=== PATIENT | male | born 1985 | race Caucasian/White ===

== ENCOUNTER 2018-02-27 02:42 | Emergency (ER) | payer BC ==
[2018-02-27 02:51] VITALS: RESP 16
[2018-02-27] MEDS ORDERED: PANTOPRAZOLE 40 MG/10 ML VIAL IVP STA (02:57)
[2018-02-27] MEDS ORDERED: ONDANSETRON 4 MG/2 ML VIAL IVP STA (02:57)
[2018-02-27] MEDS ORDERED: SODIUM CHLORIDE 0.9% 1,000 ML IV STA (02:57)
[2018-02-27] MEDS ORDERED: MAG HYDROX/AL HYDROX/SIMETH 30 ML, HYOSCYAMINE ELIXIR 10 ML, CIMETIDINE HCL 300 MG PO STA ×3 (03:30)
--- NOTE | 2018-02-27 03:34 | ED ---
Abdominal Pain HPI - General Source: patient, RN notes reviewed Mode of arrival: ambulatory Limitations: no limitations <Shadi Lal - Last Filed: 02/27/18 03:32> <Willie Lzu - Last Filed: 02/27/18 04:42> - General Chief Complaint: Abdominal Pain Stated Complaint: abd pain,vomiting Time Seen by Provider: 02/27/18 02:57 - History of Present Illness Initial Comments: 33-year-old male presents emergency Department with chief complaint of ongoing abdominal pain, nausea vomiting. Patient states he typically vomits nightly and he has epigastric pain. Patient believes that he has ulcers and hiatal hernia. He states he's never been examined. He states that he just had insurance for some 8 years. Patient denies any fever, chills no prior abdominal surgeries. Patient states that he eats healthy does take Zantac 150 mg twice daily patient denies any relief with any other [id number] medications the past. Patient states a few days ago he had Blood in his emesis. Patient states that his symptoms are not resolving but the usually do so he decided to come emergency department. Patient has no dysuria no hematuria. (Shadi Lal) - Related Data Home Medications Medication Instructions Recorded Confirmed Ranitidine HCl [Zantac] 300 mg PO DAILY 08/01/16 08/01/16 Previous Rx's Medication Instructions Recorded Cephalexin [Keflex] 500 mg PO Q6HR #28 cap 08/01/16 Allergies Allergy/AdvReac Type Severity Reaction Status Date / Time No Known Allergies Allergy Verified 08/01/16 12:49 Review of Systems ROS Other: All systems not noted in ROS Statement are negative. <Shadi Lal - Last Filed: 02/27/18 03:32> ROS Other: All systems not noted in ROS Statement are negative. <Willie Luz - Last Filed: 02/27/18 04:42> ROS Statement: Those systems with pertinent positive or pertinent negative responses have been documented in the HPI. Past Medical History Past Medical History: Hypertension History of Any Multi-Drug Resistant Organisms: None Reported Past Surgical History: Ear Surgery Past Psychological History: No Psychological Hx Reported Smoking Status: Current every day smoker Past Alcohol Use History: Occasional Past Drug Use History: Marijuana <Shadi Lal - Last Filed: 02/27/18 03:32> General Exam Limitations: no limitations General appearance: alert, in no apparent distress Head exam: Present: atraumatic, normocephalic, normal inspection Eye exam: Present: normal appearance, PERRL, EOMI. Absent: scleral icterus, conjunctival injection, periorbital swelling ENT exam: Present: normal oropharynx, mucous membranes moist Neck exam: Present: normal inspection. Absent: tenderness, meningismus, lymphadenopathy Respiratory exam: Present: normal lung sounds bilaterally. Absent: respiratory distress, wheezes, rales, rhonchi, stridor Cardiovascular Exam: Present: regular rate, normal rhythm, normal heart sounds. Absent: systolic murmur, diastolic murmur, rubs, gallop, clicks GI/Abdominal exam: Present: soft, tenderness (On the moderate epigastric tenderness), normal bowel sounds. Absent: distended, guarding, rebound, rigid Back exam: Absent: CVA tenderness (R), CVA tenderness (L) <Shadi Lal - Last Filed: 02/27/18 03:32> Vital Signs 02/27/18 02:46 Temperature 97.0 F L Pulse Rate 64 Respiratory 16 Rate Blood Pressure 141/88 O2 Sat by Pulse 100 Oximetry Medical Decision Making - Lab Data Result diagrams: 02/27/18 03:50 02/27/18 03:50 <Willie Luz - Last Filed: 02/27/18 04:42> - Lab Data Lab Results 02/27/18 02/27/18 Range/Units 03:50 03:50 WBC 6.5 (3.8-10.6) k/uL RBC 5.61 (4.30-5.90) m/uL Hgb 17.5 (13.0-17.5) gm/dL Hct 53.1 H (39.0-53.0) % MCV 94.7 (80.0-100.0) fL MCH 31.2 (25.0-35.0) pg MCHC 32.9 (31.0-37.0) g/dL RDW 13.5 (11.5-15.5) % Plt Count 245 (150-450) k/uL Neutrophils % 55 % Lymphocytes % 30 % Monocytes % 10 % Eosinophils % 2 % Basophils % 1 % Neutrophils # 3.6 (1.3-7.7) k/uL Lymphocytes # 1.9 (1.0-4.8) k/uL Monocytes # 0.6 (0-1.0) k/uL Eosinophils # 0.1 (0-0.7) k/uL Basophils # 0.0 (0-0.2) k/uL Sodium 143 (137-145) mmol/L Potassium 4.3 (3.5-5.1) mmol/L Chloride 101 (98-107) mmol/L Carbon Dioxide 28 (22-30) mmol/L Anion Gap 14 mmol/L BUN 13 (9-20) mg/dL Creatinine 1.10 (0.66-1.25) mg/dL Est GFR (CKD-EPI)AfAm >90 (>60 ml/min/1.73 sqM) Est GFR (CKD-EPI)NonAf 89 (>60 ml/min/1.73 sqM) Glucose 89 (74-99) mg/dL Calcium 9.9 (8.4-10.2) mg/dL Total Bilirubin 0.9 (0.2-1.3) mg/dL AST 141 H (17-59) U/L ALT 147 H (21-72) U/L Alkaline Phosphatase 47 (38-126) U/L Total Protein 7.0 (6.3-8.2) g/dL Albumin 4.4 (3.5-5.0) g/dL Amylase 56 (30-110) U/L Lipase 79 (23-300) U/L Disposition <Shadi Lal - Last Filed: 02/27/18 03:32> Is patient prescribed a controlled substance at d/c from ED?: No Time of Disposition: 04:42 <Willie Luz - Last Filed: 02/27/18 04:42> Clinical Impression: Abdominal pain Disposition: HOME SELF-CARE Instructions: Abdominal Pain (ED) Referrals: Cee Giraldo MD [Primary Care Provider] - 1-2 days
[2018-02-27 04:09] LABS: Basophils % (A) 1 %; Eosinophils # (A) 0.1 k/uL (0-0.7); Eosinophils % (A) 2 %; HCT 53.1 % (39.0-53.0); HGB 17.5 gm/dL (13.0-17.5); Lymphocytes # (A) 1.9 k/uL (1.0-4.8); Lymphocytes % (A) 30 %; MCH 31.2 pg (25.0-35.0); MCHC 32.9 g/dL (31.0-37.0); MCV 94.7 fL (80.0-100.0); Mean Platelet Volume 7.3; Monocytes # (A) 0.6 k/uL (0-1.0); Monocytes % (A) 10 %; Neutrophils # (A) 3.6 k/uL (1.3-7.7); Neutrophils % (A) 55 %; Platelet Count 245 k/uL (150-450); RBC 5.61 m/uL (4.30-5.90); RDW 13.5 % (11.5-15.5); WBC 6.5 k/uL (3.8-10.6)
[2018-02-27 04:36] LABS: ALT 147 U/L (21-72); AST 141 U/L (17-59); Albumin 4.4 g/dL (3.5-5.0); Alkaline Phosphatase 47 U/L (38-126); Amylase 56 U/L (30-110); Anion Gap 14 mmol/L; Blood Urea Nitrogen 13 mg/dL (9-20); Calcium 9.9 mg/dL (8.4-10.2); Carbon Dioxide 28 mmol/L (22-30); Chloride 101 mmol/L (98-107); Glucose 89 mg/dL (74-99); Lipase 79 U/L (23-300); Potassium 4.3 mmol/L (3.5-5.1); Sodium 143 mmol/L (137-145); Total Bilirubin 0.9 mg/dL (0.2-1.3)
[2018-02-27] MEDS ORDERED: ONDANSETRON 4 MG ODT STARTER PACK 2 TAB BTL PO STA (04:42)
[2018-02-27 04:57] VITALS: BP 143/80; PULSE 69; TEMP 97.3
[2018-02-27 20:46] LABS: Hepatitis A AB IgM Index 0.01; Hepatitis A Antibody IgM NEGATIVE
[2018-02-28 00:56] LABS: Hepatitis B Core IgM Non-Reactive (Non-Reactive)
== END 2018-02-27 04:57 | disposition home or self-care (01) ==
LOC: EC 02:42
DX: R10.13 Epigastric pain (principal); R11.2 Nausea with vomiting, unspecified; F17.200 Nicotine dependence, unspecified, uncomplicated; Z79.899 Other long term (current) drug therapy
CPT/HCPCS: 99284; 96374; 96375; 96361; 36415; 80053; 80074; 82150; 83690; 85025; J2405; S0119; C9113

== ENCOUNTER 2018-03-14 11:36 | Day surgery (SDC) | payer BC ==
[2018-03-10 08:50] VITALS: BMI 26.7
[~2018-03-14 11:36] MED LIST: LACTATED RINGERS 1,000 ML IV SCH
[2018-03-14 12:07] VITALS: TEMP 97.3
[2018-03-14] MEDS ORDERED: FAMOTIDINE 20 MG/2 ML VIAL IVP ONE (12:44)
[2018-03-14] MEDS ORDERED: PROPOFOL 10 MG/ML 20 ML VIAL IV ONE (12:47)
[2018-03-14] MEDS ORDERED: MIDAZOLAM 2 MG/2 ML VIAL ONE (12:47)
[2018-03-14] MEDS ORDERED: LIDOCAINE 1% INJ 10MG/ML (20 ML MDV) ONE (12:47)
--- NOTE | 2018-03-14 13:22 | P.PCN ---
Date of Procedure: 03/14/18 Procedure(s) Performed: Procedure: Esophagogastroduodenoscopy and biopsy. Preoperative diagnosis: Chronic reflux symptoms symptomatic despite therapy. Postoperative diagnosis: 1. Hiatal hernia with LA grade B esophagitis. 2. Mild duodenitis but no ulcers or active bleeding. 3. Multiple biopsies obtained from the duodenum, antrum and esophagus. Preparation and sedation: Was provided by anesthesia. Brief clinical history: The patient is a 33-year-old male with history of reflux for more than 8 years maintained on ranitidine. The patient continues to be symptomatic especially in the evening and has episodes of vomiting including vomiting of blood. This evaluation is to assess the degree of esophagitis and rule out complicated reflux disease or other pathology. Procedure: With the patient on his left lateral decubitus position and after informed consent and adequate sedation, I passed the Olympus-GIF 160 video upper endoscope through the cricopharyngeus down the esophagus. G-E junction was around 41-42 cm from the incisors and there was a small sliding hiatal hernia. The distal esophagus showed linear erosions terminating at the GE junction consistent with LA grade B reflux esophagitis but there were no strictures or Moreno's esophagus or any ulcers or bleeding. The endoscope was then passed into the stomach which was insufflated with air and inspected in detail including the retroflex view in the cardia. There was no obvious findings in the stomach. Pyloric channel did not show any ulcers. Duodenal bulb showed some mottling and erythema but no ulcers or erosions. Post bulbar area and descending duodenum was within normal limits. I obtained biopsies from the duodenum, antrum and esophagus then the endoscope was withdrawn. The patient tolerated the procedure well. Plan: The patient was reassured. He will continue antireflux diet and measures and acid suppressive therapy. Consideration can be given to increasing the dose of his H2 blockers or trying PPI to improve the healing of his esophagitis. He will follow up with you as planned and I will be happy to see him in the office in follow-up if he remains symptomatic.
[2018-03-14 13:24] VITALS: RESP 18
[2018-03-14 13:44] VITALS: BP 137/79; PULSE 69
== END 2018-03-14 14:02 | disposition home or self-care (01) ==
LOC: ORWHC2ENDO 11:36
DX: K29.50 Unspecified chronic gastritis without bleeding (principal); K21.0 Gastro-esophageal reflux disease with esophagitis; K29.80 Duodenitis without bleeding; K44.9 Diaphragmatic hernia without obstruction or gangrene; M19.90 Unspecified osteoarthritis, unspecified site; I10 Essential (primary) hypertension; Z72.0 Tobacco use; F39 Unspecified mood [affective] disorder; Z79.899 Other long term (current) drug therapy
CPT/HCPCS: 88305; 43239; J2250; J2001; J2704

== ENCOUNTER → 2019-03-30 | Day surgery (SDC) | payer BC ==
[2019-03-28 15:38] VITALS: BMI 23.8
--- NOTE | 2019-03-29 18:33 | P.GSHP ---
History of Present Illness H&P Date: 03/29/19 Chief Complaint: Biliary dyskinesia 34-year-old male last seen in the fall of 2018. Patient had complaints of epigastric abdominal pain and frequent episodes of nausea and vomiting. This is occurring on a daily basis. He was sent to the [facility] for GI evaluation. He underwent an extensive workup. Ultrasound was negative for gallstones. HIDA scan did show a diminished ejection fraction. 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 It was felt by GI that the patient was suffering from atypical biliary dyskinesia and cholecystectomy was requested. Patient and I discussed these options by phone. He requested that surgery be scheduled. Past Medical History Past Medical History: Chest Pain / Angina, GERD/Reflux, Hypertension, Osteoarthritis (OA), Skin Disorder Additional Past Medical History / Comment(s): Rare episodes of chest pain that only last 15-20 seconds, abdominal pain, eczema. Hard of hearing left ear. History of Any Multi-Drug Resistant Organisms: None Reported Past Surgical History: Ear Surgery Past Anesthesia/Blood Transfusion Reactions: No Reported Reaction Past Psychological History: No Psychological Hx Reported Smoking Status: Current every day smoker Past Alcohol Use History: Occasional Additional Past Alcohol Use History / Comment(s): Smokes 1 PPD, has smoked for 15 yrs. Past Drug Use History: Marijuana Additional Drug Use History / Comment(s): Uses Marijuana 3-4X daily. Aware no alcohol or Marijuna 24 hrs prior to procedure. - Past Family History Mother Family Medical History: No Reported History Medications and Allergies Home Medications Medication Instructions Recorded Confirmed Type Omeprazole [PriLOSEC] 40 mg PO DIRECTED PRN 03/28/19 03/28/19 History Allergies Allergy/AdvReac Type Severity Reaction Status Date / Time No Known Allergies Allergy Verified 03/28/19 15:39 Surgical - Exam Physical exam: General: Well-developed, well-nourished HEENT: Normocephalic, sclerae nonicteric Abdomen: Nontender, nondistended Extremities: No edema Neuro: Alert and oriented Assessment and Plan (1) Biliary dyskinesia Narrative/Plan: Surgical options reviewed with the patient. Surgical risks also discussed. We'll proceed with laparoscopic, possible open cholecystectomy tomorrow. Risks of bleeding, infection, bile leak, bile duct injury, retained common bile duct stone, trocar injury, conversion to an open procedure, hernia, persistent complaints of nausea and vomiting, persistent abdominal pain, anesthesia related complications were reviewed. The patient understands and wishes to proceed. Status: Acute Code(s): K82.8 - OTHER SPECIFIED DISEASES OF GALLBLADDER SNOMED Code(s): 849373939
[~2019-03-30] MED LIST changes: +BUPIVACAINE (PF) 0.25% 30 ML VIAL SQ ONE; +DEXAMETHASONE SOD PHOSPHATE 10 MG/ML 1 ML VIAL IV ONE; +GLYCOPYRROLATE 0.2 MG/ML 2 ML VIAL ONE; +HEPARIN SODIUM,PORCINE 5,000 UNIT/ML 1 ML VIAL SQ ONE; +HYDROcodone/APAP 5-325MG 1 EACH TAB PO ONE; +HYDROcodone/APAP 5-325MG 1 EACH TAB PO PRN; +LACTATED RINGERS 1,000 ML IV ONE; +LIDOCAINE 1% 20 ML VIAL (10MG/ML) FOR IV START INTRADERMA ONE; +LIDOCAINE 1% INJ 10MG/ML (20 ML MDV) ONE; +MEPERIDINE 50 MG/ML SYRINGE IVP ONE; +MIDAZOLAM 2 MG/2 ML VIAL IV PRN; +MIDAZOLAM 2 MG/2 ML VIAL ONE; +NALOXONE 0.4 MG/ML 1 ML VIAL IV PRN; +NEOSTIGMINE 1 MG/ML 10 ML VIAL ONE; +ONDANSETRON 4 MG/2 ML VIAL IVP ONE; +PROPOFOL 10 MG/ML 20 ML VIAL IV ONE; +ROCURONIUM BROMIDE 10 MG/ML 10 ML VIAL IV ONE; +SCOPOLAMINE 1.5MG/72HR PATCH TRANSDERM ONE; +SUCCINYLCHOLINE CHLORIDE 100 MG/5 ML SYR IV ONE; +ceFAZolin IN SWFI 2 GM/20 ML SYRINGE IVP ONE; +fentaNYL (PF) 50 MCG/ML 2 ML AMP ONE
[2019-03-30 09:38] VITALS: TEMP 96.9
--- NOTE | 2019-03-30 10:07 | P.OP ---
Date of Procedure: 03/30/19 Procedure(s) Performed: PREOPERATIVE DIAGNOSIS: Biliary dyskinesia POSTOPERATIVE DIAGNOSIS: Cholecystitis PROCEDURE: Laparoscopic cholecystectomy SURGEON: Izabel EBL: Minimal see anesthesia record ANESTHESIA: Gen. COMPLICATIONS: None OPERATIVE PROCEDURE: The patient was brought and placed on the operating room table in the supine position. The patient was placed under general anesthesia at that time. The abdomen was prepped and draped in the usual sterile fashion. A small vertical infraumbilical incision was made. The fascia was grasped with the Ashley forceps. The fascia was retracted anteriorly. The Veress needle was advanced into the peritoneal cavity. The saline drop test was normal. Insu fflation took place up to 15 mmHg. A 5 mm optical trocar was advanced and the peritoneal cavity. 2 additional 5 mm trochars were placed in the right upper quadrant under direct visualization. A 12 mm trocar was advanced into the epigastric incision site. The gallbladder was noted to be inflamed. The wall appeared thickened. There were adhesions to the gallbladder that were lysed using electrocautery. The gallbladder was retracted superiorly and laterally. The peritoneum overlying the infundibulum was bluntly dissected. The patient's cystic duct was visualized. The junction between the cystic duct common and hepatic duct was identified. The cystic duct was then divided after placement of 3 12 mm clips on the patient's side and one on the specimen side. The cystic artery was identified and clipped as well. A small vessel was seen along the gallbladder fossa and clipped as well. The gallbladder was then removed from the liver bed using electrocautery. The gallbladder was then removed from the epigastric trocar site with an Endo Catch bag. The gallbladder fossa was irrigated with saline. There was no evidence of any bleeding or biliary drainage seen. The fascia at the 12 millimeter site was closed using a running 0 Vicryl stitch. The trochars were then removed. The skin at all 4 sites was closed using a 4-0 Monocryl stitch. Skin glue was utilized on the incision sites. At the end of this procedure the sponge and needle counts were correct. DISPOSITION: Stable to the recovery room
[2019-03-30] MEDS: HYDROmorphone 0.5 MG/0.5 ML SYRINGE IVP PRN ×2 (10:08→10:25)
[2019-03-30 10:32] VITALS: RESP 17
[2019-03-30 10:57] VITALS: BP 127/82; PULSE 77
== END ==
LOC: OR 07:00
PROVIDERS: ATTEND Surgery
DX: K81.1 Chronic cholecystitis (principal); F17.210 Nicotine dependence, cigarettes, uncomplicated; L30.9 Dermatitis, unspecified; I10 Essential (primary) hypertension; M19.90 Unspecified osteoarthritis, unspecified site; K21.9 Gastro-esophageal reflux disease without esophagitis; H91.92 Unspecified hearing loss, left ear; Z79.899 Other long term (current) drug therapy
CPT/HCPCS: 47562; 88304; J2250; J1100; J2710; J2175; J2405; J2001; J3010; J0330; J2704; J1170; J0690

== ENCOUNTER 2020-09-26 18:19 | Emergency (ER) | payer BC, OTHER ==
[2020-09-26] MEDS ORDERED: HYDROcodone/APAP 5-325MG 1 EACH TAB PO STA (18:25)
[2020-09-26 18:27] VITALS: TEMP 98.7
[2020-09-26] MEDS ORDERED: methocarbamoL 750 MG TAB PO STA (18:27)
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
[2020-09-26 19:25] VITALS: BP 140/80; PULSE 70; RESP 17
== END 2020-09-26 19:25 | disposition home or self-care (01) ==
LOC: EC 18:19
DX: Z04.1 Encounter for examination and observation following transport accident (principal); M54.2 Cervicalgia; K21.9 Gastro-esophageal reflux disease without esophagitis; H91.92 Unspecified hearing loss, left ear; Y92.410 Unspecified street and highway as the place of occurrence of the external cause
CPT/HCPCS: 70450; 72125; 99284

== ENCOUNTER → 2023-08-09 | Outpatient (CLI) | payer MEDICAID ==
--- NOTE | 2023-08-09 21:34 | XR ---
EXAMINATION TYPE: XR chest 2V DATE OF EXAM: 08/09/2023 COMPARISON: 10/19/2011 HISTORY: 38-year-old male R06.02, shortness of breath TECHNIQUE: Frontal and lateral views FINDINGS: The cardiomediastinal silhouette, aorta, and pulmonary vasculature are within normal limits. Normal v ariant azygous fissure. Otherwise, lungs and pleural spaces are clear. IMPRESSION: No acute cardiopulmonary process.
== END | disposition home or self-care (01) ==
LOC: RADXRMAIN 12:55
PROVIDERS: ATTEND Family Medicine
DX: Z01.818 Encounter for other preprocedural examination (principal); R06.02 Shortness of breath
CPT/HCPCS: 71046

== ENCOUNTER → 2023-08-09 | Outpatient (CLI) | payer MEDICAID ==
[2023-08-09 13:40] LABS: INR 0.9 (<1.2); Partial Thromboplastin Time 27.1 sec (22.0-30.0); Prothrombin Time 10.3 sec (10.0-12.5)
[2023-08-09 14:04] LABS: Appearance,Urine Clear (Clear); Bilirubin,Urine Negative (Negative); Blood,Urine Trace (Negative); Color,Urine Yellow; Glucose,Urine (UA) Negative (Negative); Ketones,Urine Negative (Negative); Leukocyte Esterase,Urine Negative (Negative); Nitrite,Urine Negative (Negative); PH, Urine 5.5 (5.0-8.0); Protein,Urine Negative (Negative); Specific Gravity,Urine >1.030 (1.001-1.035); Urobilinogen,Urine <2.0 mg/dL (<2.0)
[2023-08-09 14:19] LABS: Mucus,Urine Occasional /hpf; RBC,Urine <1 /hpf (0-5); WBC,Urine 1 /hpf (0-5)
[2023-08-09 15:33] LABS: Basophils # (A) 0.04 X 10*3/uL (0.00-0.10); Basophils % (A) 0.6 %; Eosinophils % (A) 1.5 %; HCT 48.6 % (39.6-50.0); HGB 17.1 d/dL (13.0-17.0); Lymphocytes # (A) 2.61 X 10*3/uL (0.90-5.00); Lymphocytes % (A) 39.8 %; MCHC 35.2 d/dL (32.0-37.0); MCV 90.8 FL (80.0-97.0); Mean Platelet Volume 11.5 FL (9.5-12.2); Monocytes # (A) 0.62 X 10*3/uL (0.20-1.00); Monocytes % (A) 9.5 %; NRBC Per 100 WBC 0 X 10*3/uL (0.00-0.01); Neutrophils # (A) 3.11 X 10*3/uL (1.80-7.70); Neutrophils % (A) 47.4 %; Platelet Count 220 X 10*3/uL (140-440); RBC 5.35 X 10*6/uL (4.40-5.60); RDW 12.1 % (11.5-14.5); WBC 6.56 X 10*3/uL (4.50-10.00)
[2023-08-09 19:12] LABS: ALT 106 U/L (10-49); AST 42 U/L (14-35); Albumin 4.8 d/dL (3.8-4.9); Albumin/Globulin Ratio 2.09 Ratio (1.60-3.17); Alkaline Phosphatase 55 U/L (41-126); BUN/Creat Ratio 14.11 Ratio (12.00-20.00); Blood Urea Nitrogen 12.7 mg/dL (9.0-27.0); Calcium 10.3 mg/dL (8.7-10.3); Chloride 100 mmol/L (96-109); Globulin 2.3 d/dL (1.6-3.3); Glucose 93 mg/dL (70-110); Potassium 4.3 mmol/L (3.5-5.5); Sodium 139 mmol/L (135-145); Total Bilirubin 0.5 mg/dL (0.3-1.2); Total Protein 7.1 d/dL (6.2-8.2)
== END | disposition home or self-care (01) ==
LOC: LABWHC1 12:16
PROVIDERS: ATTEND Specialist
DX: M50.20 Other cervical disc displacement, unspecified cervical region (principal)
CPT/HCPCS: 36415; 80053; 81001; 83036; 85025; 85610; 85730; 87070

== ENCOUNTER → 2024-08-28 | Outpatient (CLI) | payer MEDICAID ==
[2024-08-28 19:44] LABS: ALT 178 U/L (10-49); AST 94 U/L (14-35); Albumin 4.8 g/dL (3.8-4.9); Albumin/Globulin Ratio 1.92 Ratio (1.60-3.17); Alkaline Phosphatase 73 U/L (41-126); Blood Urea Nitrogen 10.6 mg/dL (9.0-27.0); Calcium 9.7 mg/dL (8.7-10.3); Carbon Dioxide 24.1 mmol/L (21.6-31.8); Chloride 102 mmol/L (96-109); Globulin 2.5 g/dL (1.6-3.3); Glucose 94 mg/dL (70-110); Potassium 4.1 mmol/L (3.5-5.5); Sodium 138 mmol/L (135-145); Total Bilirubin 0.7 mg/dL (0.3-1.2); Total Protein 7.3 g/dL (6.2-8.2)
== END | disposition home or self-care (01) ==
LOC: LABWHC1 14:58
PROVIDERS: ATTEND Family Medicine
DX: R94.5 Abnormal results of liver function studies (principal); R07.9 Chest pain, unspecified
CPT/HCPCS: 36415; 80053; 84484